=== PATIENT | female | born 1965 | race Caucasian/White ===

== ENCOUNTER 2017-06-19 09:09 | Emergency (ER) | payer BC ==
[2017-06-19 09:17] VITALS: TEMP 97.7
--- NOTE | 2017-06-19 09:52 | C.PDOC ---
History Of Present Illness 51 y/o female presents to ED with complaints of new onset swelling to left eyelid and forehead since yesterday. As per patient initial onset top left eyelid with local swelling and itch. Patient awoke this morning with spread to forehead. 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 Patient reports questionable sick contact and denies sob, fever, chills or any other complaints at this time. NEW ONSET SWELLING, ITCH L EYELID AND FOREHEAD SINCE YEST. INITIAL ONSET TOP L EYELID W LOCAL SWELL AND ITCH. AWOKE THIS MORNING W SPREAD TO FOREHEAD. NO SOB. 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 NO MEDS TRIED PRODUCE TEAM MEMBER. EXAM NARD NONTOXIC HEENT MILD ANGIOEDEMA MEDIAL TOP L EYELID. MIN LOCAL ERYTHEMA. EOMI, NO CONJ ERYTHEMA. ORAL NO ANGIOEDEMA SKIN +HIVES MID FOREHEAD. Time Seen by Provider: 06/19/17 09:41 Chief Complaint (Nursing): ENT Problem History Per: Patient History/Exam Limitations: no limitations Onset/Duration Of Symptoms: Days Current Symptoms Are (Timing): Still Present Associated Symptoms: Skin Rash, Swelling Home/EMS Treatment: None Past Medical History Reviewed: Historical Data, Nursing Documentation, Vital Signs Vital Signs: Last Vital Signs Temp 97.7 F 06/19/17 09:14 Pulse 71 06/19/17 10:00 Resp 17 06/19/17 10:00 BP 130/71 06/19/17 10:00 Pulse Ox 98 06/19/17 10:00 - Medical History PMH: Hypercholesterolemia Surgical History: No Surg Hx Family History: States: No Known Family Hx - Social History Hx Tobacco Use: No Hx Alcohol Use: No Hx Substance Use: No - Immunization History Hx Tetanus Toxoid Vaccination: No Hx Influenza Vaccination: No Hx Pneumococcal Vaccination: No Review Of Systems Constitutional: Negative for: Fever, Chills Eyes: Positive for: Eyelid Inflammation. Negative for: Vision Change Cardiovascular: Negative for: Chest Pain Respiratory: Negative for: Cough, Shortness of Breath Gastrointestinal: Negative for: Nausea, Vomiting Skin: Positive for: Rash Neurological: Negative for: Headache Physical Exam - Physical Exam Appears: Non-toxic, No Acute Distress Skin: Warm, Dry, Rash (+hives to mid forehead) Head: Normacephalic Eye(s): bilateral: EOMI, right: Normal Inspection, left: Other (Mild angioedema to medial top eyelid, minimal local erythema, No conjunctival erythema) Ear(s): Bilateral: Normal Oral Mucosa: Moist Tongue: Normal Appearing, No Swelling Lips: Normal Appearing, No Swelling Gingiva: Normal Appearing, No Erythema Throat: Normal, No Erythema, No Exudate Neck: Normal ROM, Supple Chest: Symmetrical Cardiovascular: Rhythm Regular Respiratory: Normal Breath Sounds, No Rales, No Rhonchi, No Wheezing Neurological/Psych: Oriented x3, Normal Speech, Normal Cognition ED Course And Treatment O2 Sat by Pulse Oximetry: 97 (RA) Pulse Ox Interpretation: Normal Disposition Counseled Patient/Family Regarding: Diagnosis, Need For Followup, Rx Given - Disposition Referrals: YOUR,PMD [Other] Disposition: HOME/ ROUTINE Disposition Time: 09:51 Condition: GOOD Prescriptions: DiphenhydrAMINE [Benadryl] 50 mg PO TID PRN #30 cap PRN Reason: Itching / Pruritus Famotidine [Pepcid AC] 10 mg PO QN #5 tablet predniSONE [Prednisone] 60 mg PO DAILY #15 tab Instructions: Urticaria (ED) Forms: [employer] (Setswana) Print Language: SWEDISH - Clinical Impression Clinical Impression: Hives - Scribe Statement The provider has reviewed the documentation as recorded by the Clintibtristan Price All medical record entries made by the Clintibtristan were at my direction and personally dictated by me. I have reviewed the chart and agree that the record accurately reflects my personal performance of the history, physical exam, medical decision making, and the department course for this patient. I have also personally directed, reviewed, and agree with the discharge instructions and disposition.
[2017-06-19 10:02] VITALS: BP 130/71; PULSE 71; RESP 17
[2017-06-19 10:48] VITALS: O2SAT 97
== END 2017-06-19 10:02 | disposition home or self-care (01) ==
LOC: C.ER 09:09
DX: L50.9 Urticaria, unspecified (principal)

== ENCOUNTER 2017-10-16 09:13 | Emergency (ER) | payer BC ==
[2017-10-16 09:29] VITALS: BP 130/86; PULSE 99; TEMP 97.2; O2SAT 97
--- NOTE | 2017-10-16 11:50 | C.PDOC ---
History Of Present Illness 52 year old female presents to the ED for evaluation of chest pain which has been intermittent for the past 3-4 days. She states she only experiences the chest pain when she coughs and sneezes. Patient finished course of Tamiflu yesterday. She denies fever, chills, shortness of breath, sick contacts, and recent travel at this time. Chief Complaint (Nursing): Chest Pain History Per: Patient History/Exam Limitations: no limitations Onset/Duration Of Symptoms: Intermittent Episodes (3-4 days ) Current Symptoms Are (Timing): Still Present Quality: "Pain" Exacerbating Factors: Other (coughing, sneezing ) Recent travel outside of the [place]: No Additional History Per: Patient Past Medical History Reviewed: Historical Data, Nursing Documentation, Vital Signs Vital Signs: Last Vital Signs Temp 97.2 F L 10/16/17 09:28 Pulse 99 H 10/16/17 09:28 Resp 18 10/16/17 12:10 BP 130/86 10/16/17 09:28 Pulse Ox 97 10/16/17 14:49 - Medical History PMH: No Chronic Diseases Surgical History: No Surg Hx Family History: States: Unknown Family Hx - Social History Hx Tobacco Use: No Hx Alcohol Use: No Hx Substance Use: No - Immunization History Hx Tetanus Toxoid Vaccination: No Hx Influenza Vaccination: No Review Of Systems Constitutional: Negative for: Fever, Chills Cardiovascular: Positive for: Chest Pain Respiratory: Negative for: Shortness of Breath Physical Exam - Physical Exam Appears: Non-toxic, No Acute Distress Skin: Normal Color, Warm, Dry Head: Atraumatic, Normacephalic Eye(s): bilateral: Normal Inspection Oral Mucosa: Moist Neck: Supple Chest: Symmetrical, No Deformity, No Tenderness Cardiovascular: Rhythm Regular, No Murmur Respiratory: Normal Breath Sounds, No Rales, No Rhonchi, No Wheezing Extremity: Normal ROM, Capillary Refill (less than 2 seconds ) Neurological/Psych: Oriented x3, Normal Speech, Normal Cognition Gait: Steady ED Course And Treatment ECG: Interpreted By Me, Viewed By Me ECG Rhythm: Sinus Rhythm Interpretation Of ECG: Sinus at 94bpm. Normal axis and rhythm. Rate From EC O2 Sat by Pulse Oximetry: 97 (on RA) Pulse Ox Interpretation: Normal - Other Rad CXR X-Ray: Interpreted by Me, Viewed By Me, Read By Radiologist Interpretation: HISTORY: r/o infiltrate. COMPARISON: 10/09/2013. TECHNIQUE: Chest PA and lateral. FINDINGS: LUNGS: No active pulmonary disease. PLEURA: No significant pleural effusion identified. No pneumothorax apparent. CARDIOVASCULAR: Normal. OSSEOUS STRUCTURES: No significant abnormalities. VISUALIZED UPPER ABDOMEN: Right upper quadrant cholecystectomy clips inferred. OTHER FINDINGS: None. IMPRESSION: No active disease. Medical Decision Making Medical Decision Making: Progress: CXR ordered and reviewed. On reassessment, patient is resting comfortably, showing no signs of distress and is stable for discharge. Patient is advised to f/u with her PMD within 2-3 days for further evaluation and/or return to the ED if symptoms persist or worsen. Disposition - Disposition Referrals: Cornelio Glynn, [Non-Staff] - Disposition: HOME/ ROUTINE Disposition Time: 11:45 Condition: GOOD Additional Instructions: Thank you for letting us take care of you today. The emergency medical care you received today was directed at your acute symptoms. If you were prescribed any medication, please fill it and take as directed. It may take several days for your symptoms to resolve. Return to the Emergency Department if your symptoms worsen, do not improve, or if you have any other problems. Please contact your doctor or call one of the physicians/clinics you have been referred to that are listed on the Patient Visit Information form that is included in your discharge packet. Bring any paperwork you were given at discharge with you along with any medications you are taking to your follow up visit. Our treatment cannot replace ongoing medical care by a primary care provider (PCP) outside of the emergency department. Thank you for allowing the [facility] team to be part of your care today. Please follow up with your doctor in 2-3 days for re-evaluation and further management. Instructions: Upper Respiratory Infection (ED) Forms: Work Excuse - Clinical Impression Clinical Impression: Viral syndrome - Scribe Statement The provider has reviewed the documentation as recorded by the Scribe (Brisa Childers) Provider Attestation: All medical record entries made by the Scribe were at my direction and personally dictated by me. I have reviewed the chart and agree that the record accurately reflects my personal performance of the history, physical exam, medical decision making, and the department course for this patient. I have also personally directed, reviewed, and agree with the discharge instructions and disposition.
--- NOTE | 2017-10-16 12:32 | RAD ---
HISTORY: r/o infiltrate COMPARISON: 10/09/2013 TECHNIQUE: Chest PA and lateral FINDINGS: LUNGS: No active pulmonary disease. PLEURA: No significant pleural effusion identified. No pneumothorax apparent. CARDIOVASCULAR: Normal. OSSEOUS STRUCTURES: No significant abnormalities. VISUALIZED UPPER ABDOMEN: Right upper quadrant cholecystectomy clips inferred OTHER FINDINGS: None. IMPRESSION: No active disease.
[2017-10-16 12:41] VITALS: RESP 18
--- NOTE | 2017-10-18 15:21 | CARD ---
APPROVED REPORT EKG Measurement Heart [id number] <Conclusion> Normal sinus rhythm Normal ECG
== END 2017-10-16 12:50 | disposition home or self-care (01) ==
LOC: C.ER 09:13
DX: B34.9 Viral infection, unspecified (principal)

== ENCOUNTER 2018-07-25 16:36 | Emergency (ER) | payer BC ==
[2018-07-25 16:45] VITALS: BP 126/77; PULSE 86; RESP 18; TEMP 98.2; O2SAT 99
--- NOTE | 2018-07-25 17:21 | C.PDOC ---
History Of Present Illness 52 yo female w/o significant PMhx come in for evaluation of Right shoulder pain gradually developed for past weeks. Pt reports, pain is worse with Right arm lifting, with radiation of pain to Right side of neck and Right upper back. 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 Otherwise, pt denies headache, dizziness, neck pain, CP, SOB, dyspnea, diaphoresis, palpitation, denies weakness, sensory or vascular deficits to Right arm. Ambulate to Ed for evaluation, not in any apparent distress. Time Seen by Provider: 07/25/18 16:56 Chief Complaint (Nursing): Medical Clearance History Per: Patient Past Medical History Reviewed: Historical Data, Nursing Documentation, Vital Signs Vital Signs: Last Vital Signs Temp 98.2 F 07/25/18 16:42 Pulse 86 07/25/18 16:42 Resp 18 07/25/18 16:42 BP 126/77 07/25/18 16:42 Pulse Ox 99 07/25/18 16:42 - Medical History PMH: No Chronic Diseases Family History: States: Unknown Family Hx - Social History Hx Tobacco Use: No Hx Alcohol Use: No Hx Substance Use: No - Immunization History Hx Tetanus Toxoid Vaccination: No Hx Influenza Vaccination: No Review Of Systems Except As Marked, All Systems Reviewed And Found Negative. Constitutional: Negative for: Fever, Chills Eyes: Negative for: Vision Change ENT: Negative for: Ear Discharge, Throat Pain Cardiovascular: Negative for: Chest Pain, Palpitations, Edema, Light Headedness Respiratory: Negative for: Cough, Shortness of Breath, Wheezing Gastrointestinal: Negative for: Nausea, Vomiting, Abdominal Pain, Diarrhea Musculoskeletal: Positive for: Shoulder Pain (Right) Skin: Negative for: Rash, Lesions, Bruising Neurological: Negative for: Weakness, Numbness, Altered Mental Status, Headache, Dizziness Physical Exam - Physical Exam Appears: Well, Non-toxic, No Acute Distress Skin: Normal Color, Warm, Dry, No Rash, No Ecchymosis Head: Normacephalic Eye(s): bilateral: PERRL Throat: No Drooling Neck: Trachea Midline, Supple Cardiovascular: Rhythm Regular, No Murmur, No JVD, Other ((-) carotid bruits B/ L) Respiratory: No Decreased Breath Sounds, No Accessory Muscle Use, No Stridor, No Wheezing Back: No CVA Tenderness, Other (Right periscapular tenderness, no skin changes.) Extremity: Normal ROM (mild discomfort to Right shoulder extension/abduction due to pain), Tenderness (superior aspect Right shoulder), No Deformity, No Swelling Pulses: Right Radial: Normal Neurological/Psych: Oriented x3, Normal Speech, Normal Motor, Normal Sensation, Normal Reflexes ED Course And Treatment O2 Sat by Pulse Oximetry: 99 Pulse Ox Interpretation: Normal - Other Rad Right shoulder X-Ray: Interpreted by Me, Viewed By Me Interpretation: (-) acute fx or dislocation Progress Note: On re-eval, pt is afebrile, hemodynamicaly stable. Non-toxic. Ambulatory in ED with stable gait. PulsEOx 99% RA. neck: Supple, (-) midline tenderness, (-) JVD. Lungs: CTA B/L, BS equal B/L. CVS: (+)S1S2, reg. RUE: mild tenderness superior aspect Right shoulder extend to Right periscapular area and Right lateral neck, mild discomfort to Right shoulder abduction. No neurovascular deficits. Imaging review (-) acute fx or disloctaion. Pt has clinical finidngs c/w Right shoulder tendonitis, Right upper muscle strain. Pt advised. ref. to f/u with PMD in 2-3 dyas for re-eval. return ifany new changes. Disposition Counseled Patient/Family Regarding: Studies Performed, Diagnosis, Need For Followup, Rx Given - Disposition Referrals: [facility] [Outside] Disposition: HOME/ ROUTINE Disposition Time: 17:32 Condition: STABLE Additional Instructions: No lifting to Right arm, rest to Right arm for 1-2 weeks Take medication as prescribed Follow up with PMD in 2-3 days for re-evaluation and further treatment return if any new changes. Prescriptions: Gabapentin [Neurontin] 300 mg PO HS #10 cap Methocarbamol [Robaxin] 500 mg PO TID #14 tab Prednisone [Deltasone] 40 mg PO DAILY #6 tablet Instructions: Shoulder Sprain, Muscle Strain, Cervical Muscle Strain Print Language: MALTESE - Clinical Impression Clinical Impression: Shoulder tendonitis, Cervical strain, Upper back strain
--- NOTE | 2018-07-25 19:26 | RAD ---
Right shoulder three views History: Pain. Comparison: None available. Findings: Mild narrowing of the right glenohumeral joint space. Mild narrowing of the right acromioclavicular joint space. No evidence of acute displaced fracture or dislocation. Impression: Negative acute. If pain persists, consider MRI.
== END 2018-07-25 17:45 | disposition home or self-care (01) ==
LOC: C.ER 16:36
DX: M75.91 Shoulder lesion, unspecified, right shoulder (principal); S16.1XXA Strain of muscle, fascia and tendon at neck level, initial encounter; S29.012A Strain of muscle and tendon of back wall of thorax, initial encounter; X58.XXXA Exposure to other specified factors, initial encounter